=== PATIENT | male | born 2000 | race Caucasian/White ===

== ENCOUNTER 2025-01-27 18:38 | Emergency (ER) | payer BC, SELFPAY ==
[2025-01-27 18:47] VITALS: BP 135/84; PULSE 90; TEMP 36.8; O2SAT 100; BMI 21.2
== END 2025-01-28 00:18 | disposition left against medical advice (07) ==
PROVIDERS: Emergency Provider Internal Medicine
DX: S60.450A Superficial foreign body of right index finger, initial encounter (principal); Z53.21 Procedure and treatment not carried out due to patient leaving prior to being seen by health care provider
CPT/HCPCS: 99281